=== PATIENT | male | born 1990 | race Caucasian/White ===

== ENCOUNTER 2018-10-30 19:22 | Emergency (ER) | payer MEDICAID, OTHER ==
--- NOTE | 2018-10-30 19:59 | EDM.PDOC ---
ED HPI GENERAL MEDICAL PROBLEM - General Chief Complaint: Upper Extremity Injury/Pain Stated Complaint: right ring finger pain Time Seen by Provider: 10/30/18 19:47 Source of Information: Reports: Patient History Limitations: Reports: No Limitations - History of Present Illness INITIAL COMMENTS - FREE TEXT/NARRATIVE: was working today and dropped a barrel onto it. He has pain in the 4th finger. He does have a small abrasion noted to the finger that is not bleeding. Has good sensation to the area. Good CMS. No other injuries noted. Onset: Today Location: Reports: Other (right hand) Right Finger-Ring Pain Score (Numeric/FACES): 10 - Related Data Allergies Allergy/AdvReac Type Severity Reaction Status Date / Time grain dust Allergy Other Uncoded 10/30/18 19:26 Home Meds: Home Meds . [No Known Home Meds] 10/30/18 [History] Past Medical History - Past Surgical History HEENT Surgical History: Reports: Other (See Below) Other HEENT Surgeries/Procedures: wisdom tooth removal x4 Musculoskeletal Surgical History: Reports: Other (See Below) Other Musculoskeletal Surgeries/Procedures:: right hand fracture repair Social & Family History - Tobacco Use Smoking Status *Q: Current Every Day Smoker Years of Tobacco use: 13 Packs/Tins Daily: 1 Review of Systems - Review of Systems Review Of Systems: See Below Constitutional: Reports: No Symptoms Musculoskeletal: Reports: Other (Has pain to the right 4th finger between the distal and the MIP joints. Denies any pain to the joints. Is able to move the joints. Is able to flex and extend fingers.) Skin: Reports: Other (Has small abrasion noted to the top of the finger.) ED EXAM, GENERAL - Physical Exam Exam: See Below Exam Limited By: No Limitations General Appearance: Alert, WD/WN, Mild Distress Extremities: Other (Tender between the DIP and MIP joint. Able to move the joints. Mild swelling noted to the area.) Skin Exam: Warm, Dry, Other (small abrasion noted to the right 4th finger. No bleeding noted.) Course - Vital Signs Last Recorded V/S: Last Vital Signs Temp 97.5 F 10/30/18 19:24 Pulse 102 H 10/30/18 19:24 Resp 20 10/30/18 19:24 BP 176/83 H 10/30/18 19:24 Pulse Ox 95 10/30/18 19:24 - Orders/Labs/Meds Orders: Active Orders 24 hr Category Date Time Status Hand Comp Min 3V Rt [CR] Stat Exams 10/30/18 19:31 Taken - Re-Assessments/Exams Free Text/Narrative Re-Assessment/Exam: 10/30/181954 Finger splint applied to the 4th finger. Taped in place for support. He states that it feels better when supported. Departure - Departure Time of Disposition: 20:02 Disposition: Home, Self-Care 01 Condition: Good Clinical Impression: Fracture of metacarpal bone Qualifiers: Encounter type: initial encounter Metacarpal bone: fourth Fracture type: closed Metacarpal location: shaft Fracture alignment: nondisplaced Laterality: right Qualified Code(s): S62.354A - Nondisplaced fracture of shaft of fourth metacarpal bone, right hand, initial encounter for closed fracture - Discharge Information *PRESCRIPTION DRUG MONITORING PROGRAM REVIEWED*: Not Applicable *COPY OF PRESCRIPTION DRUG MONITORING REPORT IN PATIENT GIANNI: Not Applicable Instructions: Finger Fracture, [id number] Additional Instructions: keep splint on for 6 weeks and then rexray Ice if needed for swelling Tylenol or advil as needed for discomfort - Problem List & Annotations (1) Fracture of metacarpal bone SNOMED Code(s): 341603365 Code(s): S62.309A - UNSP FRACTURE OF UNSP METACARPAL BONE, INIT FOR CLOS FX Status: Acute Qualifiers: Encounter type: initial encounter Metacarpal bone: fourth Fracture type: closed Metacarpal location: shaft Fracture alignment: nondisplaced Laterality: right Qualified Code(s): S62.354A - Nondisplaced fracture of shaft of fourth metacarpal bone, right hand, initial encounter for closed fracture - Problem List Review Problem List Initiated/Reviewed/Updated: Yes - My Orders Last 24 Hours: My Active Orders 10/30/18 19:31 Hand Comp Min 3V Rt [CR] Stat - Assessment/Plan Last 24 Hours: My Active Orders 10/30/18 19:31 Hand Comp Min 3V Rt [CR] Stat
== END 2018-10-30 20:10 | disposition home or self-care (01) ==
LOC: CC.ED 19:22
DX: S62.354A Nondisplaced fracture of shaft of fourth metacarpal bone, right hand, initial encounter for closed fracture (principal); W20.8XXA Other cause of strike by thrown, projected or falling object, initial encounter; Z91.09 Other allergy status, other than to drugs and biological substances
CPT/HCPCS: 73130-RT; 99283-25

== ENCOUNTER 2022-10-15 23:05 | Emergency (ER) | payer MEDICAID ==
[2022-10-15] MEDS ORDERED: Diphtheria,Pertussis(Acell),Tetanus Vaccine 0.5 ML Syringe IM ONE (23:23)
== END 2022-10-15 23:50 ==
LOC: CC.ED 23:05
DX: S80.811A Abrasion, right lower leg, initial encounter (principal); Z91.048 Other nonmedicinal substance allergy status; Z23 Encounter for immunization; W22.09XA Striking against other stationary object, initial encounter
CPT/HCPCS: 90471; 90715; 99283; 99283-25

== ENCOUNTER 2024-12-16 01:58 | Emergency (ER) | payer SELFPAY ==
[2024-12-16 02:48] LABS: BASOPHILS ABSOLUTE AUTO 0.03 10^3/uL (0.00-0.50); BASOPHILS PERCENT AUTO 0.3 % (0-1); EOSINOPHILS ABSOLUTE AUTO 0.05 10^3/uL (0.00-1.50); EOSINOPHILS PERCENT AUTO 0.5 % (0-6); HEMATOCRIT 41.9 % (42.0-52.0); HEMOGLOBIN 14.7 g/dL (14.0-18.0); IMMATURE GRAN ABSOLUTE AUTO 0.09 10^3/uL (0.00-0.49); IMMATURE GRAN PERCENT AUTO 0.9 % (0.0-4.9); LYMPHOCYTES PERCENT AUTO 15.2 % (24-44); MEAN CORPUSCULAR HEMOGLOBIN 33.3 pg (27.0-32.0); MEAN CORPUSCULAR HGB CONC 35.1 g/dL (32.0-36.0); MEAN CORPUSCULAR VOLUME 94.8 fL (83.0-97.0); MONOCYTES ABSOLUTE AUTO 0.74 10^3/uL (0.00-1.50); NEUTROPHILS PERCENT AUTO 76.1 % (41-71); PLATELET COUNT,PLT 242 10^3/uL (150-400); RED BLOOD CELL COUNT 4.42 x10^6/uL (4.50-6.00); WHITE BLOOD CELL COUNT,WBC 10.5 10^3/uL (4.0-11.0)
[2024-12-16] MEDS: Sodium Chloride 0.9% 1,000 ML IV ONE (02:49)
[2024-12-16] MEDS: fentaNYL 50 MCG/ML SDV IVPUSH ONE (02:49)
[2024-12-16] MEDS: Orphenadrine 60 MG/2 ML Inj IV ONE (02:50)
[2024-12-16 03:04] LABS: ALANINE AMINOTRANSFERASE,ALT 19 U/L (12-78); ALBUMIN 4.1 g/dL (3.4-5.0); ALKALINE PHOSPHATASE 61 U/L (46-116); ASPARTATE AMNIOTRANSFERASE,AST 23 U/L (15-37); BILIRUBIN TOTAL 0.4 mg/dL (0.0-1.0); BLOOD UREA NITROGEN,BUN 17 mg/dL (7-18); CALCIUM 8.8 mg/dL (8.4-10.1); CARBON DIOXIDE,CO2 26 mmol/L (21-32); CHLORIDE,CL 103 mEq/L (98-106); ETHANOL BLOOD MEDICAL 126 mg/dL (0-3); GLUCOSE RANDOM 110 mg/dL (75-99); MAGNESIUM 1.8 mg/dL (1.8-2.4); POTASSIUM,K 3.8 mEq/L (3.5-5.0); PROTEIN TOTAL,TP 7.4 g/dL (6.4-8.2); SODIUM,NA 140 mEq/L (136-145)
[2024-12-16 03:08] LABS: APPEARANCE,URINE CLEAR (CLEAR); BILIRUBIN,URINE NEGATIVE (NEGATIVE); COLOR,URINE YELLOW (YELLOW); GLUCOSE,URINE NEGATIVE (NEGATIVE); KETONES,URINE NEGATIVE (NEGATIVE); LEUKOCYTE ESTERASE,URINE NEGATIVE (NEGATIVE); NITRITE,URINE NEGATIVE (NEGATIVE); OCCULT BLOOD,URINE NEGATIVE (NEGATIVE); PROTEIN,URINE NEGATIVE (NEGATIVE); UROBILINOGEN,URINE 0.2 EU/dL (0.2-1.0)
[2024-12-16 03:09] LABS: ESTIMATED GFR 102 mL/min (>=60)
[2024-12-16 03:10] LABS: AMPHETAMINES,URINE NEGATIVE (NEGATIVE); BARBITURATES,URINE NEGATIVE (NEGATIVE); BENZODIAZEPINE,URINE NEGATIVE (NEGATIVE); MDMA (ECSTASY), URINE NEGATIVE (NEGATIVE); METHADONE,URINE NEGATIVE (NEGATIVE); METHAMPHETAMINES,URINE NEGATIVE (NEGATIVE); OPIATES,URINE NEGATIVE (NEGATIVE); OXYCODONE,URINE NEGATIVE (NEGATIVE); PHENCYCLIDINE,URINE NEGATIVE (NEGATIVE); TCA,URINE NEGATIVE (NEGATIVE)
[2024-12-16] MEDS: Iopamidol 755 Mg/ML 100 ML Bottle IVPUSH ONE (03:45)
[2024-12-16] MEDS: Take Home: Acetaminophen/HYDROcodone 325-5 MG, 2 Tab Pack PO ONE (05:30)
[2024-12-16] MEDS: Take Home: Acetaminophen/HYDROcodone 325-5 MG, 2 Tab Pack ONE (06:01)
== END 2024-12-16 05:45 | disposition home or self-care (01) ==
LOC: CC.ED 02:13
DX: S32.029A Unspecified fracture of second lumbar vertebra, initial encounter for closed fracture (principal); Z91.048 Other nonmedicinal substance allergy status; Z79.899 Other long term (current) drug therapy; V86.56XA Driver of dirt bike or motor/cross bike injured in nontraffic accident, initial encounter; Y93.55 Activity, bike riding
CPT/HCPCS: 36415; 70450; 71045; 72125; 72128; 72131; 72170; 74177; 80053; 80305-QW; 80307; 81003; 83605; 83735; 84484; 85025; 96374; 96375; 99284; 99284-25; A9270-GY; J2360; J3010; J7030; Q9967